=== PATIENT | female | born 1990 | race Caucasian/White ===

== ENCOUNTER 2018-03-08 15:33 | Emergency (ER) | payer MEDICAID ==
[2018-03-08 17:03] LABS: BASOPHILS 0.3 % (0-2); HEMATOCRIT 34.1 % (36.0-48.0); HEMOGLOBIN 11.6 g/dL (12-16); LYMPHOCYTES 30.7 % (15-50); MCH 30.4 pg (26.0-34.0); MCV 89.3 fL (80.0-100.0); MEAN PLATELET VOLUME 10.4 fL (7.4-10.4); MONOCYTES 8.6 % (2-11); NEUTROPHILS 56.4 % (40-80); PLATELET COUNT 232 10x3/uL (130-400); RBC 3.82 10x6/uL (4.00-5.40); RDW 13.4 % (11.5-14.5); WBC 6.5 10x3/uL (4.8-10.8)
[2018-03-08 17:04] LABS: APPEARANCE HAZY (CLEAR); BILIRUBIN NEGATIVE (NEGATIVE); COLOR YELLOW (YELLOW); GLUCOSE NEGATIVE (NEGATIVE); KETONE NEGATIVE (NEGATIVE); NITRITE NEGATIVE (NEGATIVE); PROTEIN TRACE mg/dL (NEGATIVE); UROBILINOGEN NORMAL (NORMAL)
[2018-03-08 17:06] LABS: EPITHELIAL CELLS 0-5 /hpf (0-5); RED CELLS - URINE >50 /hpf (0-5)
[2018-03-08 17:07] LABS: BACTERIA MODERATE /hpf (NONE SEEN)
[2018-03-08 17:30] LABS: ALBUMIN 3.4 g/dL (3.4-5.0); ALKALINE PHOSPHATASE 113 U/L (46-116); ALT (SGPT) 77 U/L (10-68); BILIRUBIN - TOTAL 0.21 mg/dL (0.2-1.3); CALC OSMOLALITY 289 mosm/kg (275-300); CALCIUM 8.6 mg/dL (8.5-10.1); CARBON DIOXIDE 25.2 mmol/L (21.0-32.0); CHLORIDE - SERUM 109 mmol/L (98-107); CREATININE - SERUM 0.9 mg/dL (0.6-1.3); GLUCOSE 87 mg/dL (74-106); POTASSIUM - SERUM 3.1 mmol/L (3.5-5.1); PROTEIN - SERUM 6.9 g/dL (6.4-8.2); SODIUM 146 mmol/L (136-145); UREA NITROGEN 12 mg/dL (7-18); eGFR NON AFRICAN AMERICAN 78 mL/min (90-120)
[2018-03-08 17:37] LABS: HCG SERUM NEGATIVE (NEGATIVE)
[2018-05-07 21:51] VITALS: BMI 31.0
== END 2018-03-08 18:50 | disposition home or self-care (01) ==
LOC: D.ER 15:33
PROVIDERS: Family Medicine
DX: N23 Unspecified renal colic (principal); N39.0 Urinary tract infection, site not specified

== ENCOUNTER 2018-03-14 15:47 | Emergency (ER) | payer MEDICAID ==
[~2018-03-14] VITALS: Ht 185.4 cm; Wt 106.8 kg
[2018-03-14 16:04] VITALS: Ht 185.4 cm; Wt 106.8 kg
[2018-03-14 16:25] LABS: BASOPHILS 0.3 % (0-2); EOSINOPHILS 4.7 % (0-7); HEMOGLOBIN 10.7 g/dL (12-16); IMMATURE GRANULOCYTES 0.1 % (0-5); LYMPHOCYTES 31.6 % (15-50); MCH 30.2 pg (26.0-34.0); MCHC 33.4 g/dL (31.0-37.0); MCV 90.4 fL (80.0-100.0); MEAN PLATELET VOLUME 9.4 fL (7.4-10.4); MONOCYTES 7.7 % (2-11); NEUTROPHILS 55.6 % (40-80); PLATELET COUNT 196 10x3/uL (130-400); RBC 3.54 10x6/uL (4.00-5.40); RDW 13.5 % (11.5-14.5); WBC 6.8 10x3/uL (4.8-10.8)
[2018-03-14 16:40] LABS: ALBUMIN 3.2 g/dL (3.4-5.0); ALKALINE PHOSPHATASE 85 U/L (46-116); ALT (SGPT) 49 U/L (10-68); BILIRUBIN - TOTAL 0.23 mg/dL (0.2-1.3); CALC OSMOLALITY 285 mosm/kg (275-300); CALCIUM 8.2 mg/dL (8.5-10.1); CARBON DIOXIDE 26.7 mmol/L (21.0-32.0); CHLORIDE - SERUM 110 mmol/L (98-107); CREATININE - SERUM 0.8 mg/dL (0.6-1.3); GLUCOSE 94 mg/dL (74-106); POTASSIUM - SERUM 3.3 mmol/L (3.5-5.1); PROTEIN - SERUM 6.5 g/dL (6.4-8.2); SODIUM 144 mmol/L (136-145); UREA NITROGEN 9 mg/dL (7-18); eGFR NON AFRICAN AMERICAN 90 mL/min (90-120)
[2018-03-14 21:04] LABS: HCG URINE NEGATIVE (NEGATIVE)
[2018-03-14 21:23] LABS: APPEARANCE CLOUDY (CLEAR); BILIRUBIN NEGATIVE (NEGATIVE); COLOR YELLOW (YELLOW); EPITHELIAL CELLS 0-5 /hpf (0-5); GLUCOSE NEGATIVE (NEGATIVE); KETONE NEGATIVE (NEGATIVE); NITRITE NEGATIVE (NEGATIVE); PROTEIN 1+ mg/dL (NEGATIVE); RED CELLS - URINE >50 /hpf (0-5); SPECIFIC GRAVITY 1.015 (1.005-1.020); UROBILINOGEN NORMAL (NORMAL)
[2018-03-14 21:24] LABS: BACTERIA MODERATE /hpf (NONE SEEN)
[2018-03-14 21:56] VITALS: BP 136/83
== END 2018-03-14 21:58 | disposition home or self-care (01) ==
LOC: D.ER 15:47
PROVIDERS: Emergency Medicine; Family Medicine
DX: R53.1 Weakness (principal); F17.200 Nicotine dependence, unspecified, uncomplicated

== ENCOUNTER 2018-04-10 08:31 | Inpatient (IN) | payer MEDICAID ==
[~2018-04-10] VITALS: Ht 185.4 cm; Wt 106.6 kg
[2018-04-10 09:18] LABS: HCG URINE NEGATIVE (NEGATIVE)
[2018-04-10 09:19] LABS: APPEARANCE CLOUDY (CLEAR); BILIRUBIN NEGATIVE (NEGATIVE); COLOR DY (YELLOW); GLUCOSE NEGATIVE (NEGATIVE); KETONE NEGATIVE (NEGATIVE); NITRITE NEGATIVE (NEGATIVE); PROTEIN 1+ mg/dL (NEGATIVE); UROBILINOGEN NORMAL (NORMAL)
[2018-04-10 09:23] LABS: BACTERIA MODERATE /hpf (NONE SEEN); RED CELLS - URINE 25-50 /hpf (0-5)
[2018-04-10 09:25] LABS: MUCUS <1+ /lpf (NONE SEEN)
[2018-04-10 09:46] LABS: BASOPHILS 0.3 % (0-2); EOSINOPHILS 2.1 % (0-7); HEMATOCRIT 35.4 % (36.0-48.0); HEMOGLOBIN 12.2 g/dL (12-16); LYMPHOCYTES 23.9 % (15-50); MCH 30.8 pg (26.0-34.0); MCHC 34.5 g/dL (31.0-37.0); MCV 89.4 fL (80.0-100.0); MEAN PLATELET VOLUME 9.3 fL (7.4-10.4); MONOCYTES 9.3 % (2-11); NEUTROPHILS 64.4 % (40-80); PLATELET COUNT 188 10x3/uL (130-400); RBC 3.96 10x6/uL (4.00-5.40); WBC 5.8 10x3/uL (4.8-10.8)
[2018-04-10 10:20] LABS: ALBUMIN 3.6 g/dL (3.4-5.0); ALKALINE PHOSPHATASE 108 U/L (46-116); ALT (SGPT) 44 U/L (10-68); AMYLASE - SERUM 39 U/L (25-115); BILIRUBIN - TOTAL 0.34 mg/dL (0.2-1.3); CALC OSMOLALITY 280 mosm/kg (275-300); CALCIUM 8.8 mg/dL (8.5-10.1); CARBON DIOXIDE 26.5 mmol/L (21.0-32.0); CHLORIDE - SERUM 104 mmol/L (98-107); CREATININE - SERUM 0.9 mg/dL (0.6-1.3); GLUCOSE 113 mg/dL (74-106); LIPASE 98 U/L (73-393); PROTEIN - SERUM 7.4 g/dL (6.4-8.2); SODIUM 141 mmol/L (136-145); UREA NITROGEN 11 mg/dL (7-18); eGFR NON AFRICAN AMERICAN 78 mL/min (90-120)
[2018-04-10 12:30] VITALS: BP 124/072
[2018-04-10 20:36] VITALS: BP 99/64; BMI 31.0
[2018-04-11] VITALS (7 sets, daily range): BP systolic 99–128; BP diastolic 51–65; Ht 185.4 cm; Wt 106.6 kg
[2018-04-11 06:07] LABS: BASOPHILS 0.2 % (0-2); EOSINOPHILS 3.8 % (0-7); HEMATOCRIT 33.4 % (36.0-48.0); IMMATURE GRANULOCYTES 0.2 % (0-5); LYMPHOCYTES 37.4 % (15-50); MCH 29.7 pg (26.0-34.0); MCHC 32.9 g/dL (31.0-37.0); MCV 90.3 fL (80.0-100.0); MEAN PLATELET VOLUME 10.7 fL (7.4-10.4); MONOCYTES 11.1 % (2-11); NEUTROPHILS 47.3 % (40-80); PLATELET COUNT 189 10x3/uL (130-400); RDW 13.2 % (11.5-14.5)
[2018-04-11 06:36] LABS: WBC 4.3 10x3/uL (4.8-10.8)
[2018-04-11 06:37] LABS: CALC OSMOLALITY 275 mosm/kg (275-300); CALCIUM 7.8 mg/dL (8.5-10.1); CARBON DIOXIDE 26.7 mmol/L (21.0-32.0); CHLORIDE - SERUM 105 mmol/L (98-107); CREATININE - SERUM 0.7 mg/dL (0.6-1.3); GLUCOSE 77 mg/dL (74-106); MAGNESIUM - SERUM 1.5 mg/dL (1.8-2.4); PHOSPHOROUS 3.7 mg/dL (2.5-4.9); SODIUM 140 mmol/L (136-145); UREA NITROGEN 6 mg/dL (7-18); eGFR NON AFRICAN AMERICAN > 90 mL/min (90-120)
[2018-04-11 13:23] LABS: % SATURATION 58 % (15-55); IRON 239 ug/dl (35-150); TOTAL IRON BIND CAPACITY 409 ug/dl (260-445); UNSAT IRON BIND CAPACITY 170 ug/dl (150-375)
[2018-04-11 13:40] LABS: FERRITIN 66 ng/mL (3-244); LDH 320 U/L (81-234)
[2018-04-12 04:44] VITALS: BP 108/52
[2018-04-12 09:15] VITALS: BP 117/61
[2018-04-12 11:47] VITALS: BP 115/57
[2018-04-12] MEDS ORDERED: FLAGYL500 MG PO (13:15)
[2018-04-12] MEDS ORDERED: LEVAQUIN750 MG PO (13:15)
[2018-04-13 09:14] LABS: FOLATE (FOLIC ACID) - SERUM 11.8 ng/mL (>3.0)
== END 2018-04-12 15:27 | disposition home or self-care (01) | DRG 392 ==
LOC: D.ER 08:31 → D.EDHOLD 13:23 → D.MS 13:23
PROVIDERS: Family Medicine; Internal Medicine Nephrology
DX: A09 Infectious gastroenteritis and colitis, unspecified (principal); N39.0 Urinary tract infection, site not specified; K21.9 Gastro-esophageal reflux disease without esophagitis; D64.9 Anemia, unspecified; E87.6 Hypokalemia; E83.42 Hypomagnesemia; N20.0 Calculus of kidney

== ENCOUNTER 2018-04-30 17:02 | Emergency (ER) | payer MEDICAID ==
[~2018-04-30] VITALS: Ht 185.4 cm; Wt 104.5 kg
[~2018-04-30 17:02] MED LIST: FLAGYL500 MG PO; LEVAQUIN750 MG PO
[2018-04-30 17:28] VITALS: BP 123/65; Ht 185.4 cm; Wt 104.5 kg
== END 2018-04-30 18:10 | disposition left against medical advice (07) ==
LOC: D.ER 17:02
DX: K62.89 Other specified diseases of anus and rectum (principal)

== ENCOUNTER 2018-05-07 21:46 | Emergency (ER) | payer MEDICAID ==
[~2018-05-07] VITALS: Ht 185.4 cm; Wt 106.8 kg
[2018-05-07 21:51] VITALS: Ht 185.4 cm; Wt 106.8 kg
[2018-05-07] MEDS ORDERED: NAPROSYN500 MG PO (21:53)
[2018-05-08] MEDS ORDERED: LOMOTIL TABLET1 TAB PO (00:37)
[2018-05-08] MEDS ORDERED: MEDROL DOSE PACK4 MG PO (00:37)
[2018-05-08 02:03] VITALS: BP 123/74
== END 2018-05-08 04:48 | disposition home or self-care (01) ==
LOC: D.ER 21:46
DX: K62.89 Other specified diseases of anus and rectum (principal); R19.7 Diarrhea, unspecified; F17.200 Nicotine dependence, unspecified, uncomplicated